=== PATIENT | female | born 1965 | race Caucasian/White ===

== ENCOUNTER 2020-01-25 13:15 | Emergency (ER) | payer BC, OTHER ==
[2020-01-25 13:40] VITALS: BP 162/85
--- NOTE | 2020-01-25 13:59 | UC ---
Upper Extremity HPI - HPI Summary HPI Summary: left arm pain x 1 month pain is dull , 8 out 10 , nothing makes it worse, better with constant movement no known injury , pain starts for the neck down to the hands + numbness of the arm and hand c/o pain in left side of neck , with neck stiffness - History of Current Complaint Chief Complaint: UCUpperExtremity Stated Complaint: LT ARM COMPLAINT Time Seen by Provider: 01/25/20 13:46 Hx Obtained From: Patient Hx Last Menstrual Period: implant Onset/Duration: Gradual Onset, Lasting Weeks - 4, Still Present Severity Initially: Moderate Severity Currently: Moderate Pain Intensity: 8 Location Of Pain: Is Discrete @ - left arm Character: Dull, Aching Aggravating Factor(s): Movement, Lifting, Flexion, Extension, Internal/External Rotation, Abduction, Adduction Alleviating Factor(s): Nothing Associated Signs And Symptoms: Positive: Weakness, Numbness/Tingling. Negative : Swelling, Redness, Bruising, Fever - Allergies/Home Medications Allergies/Adverse Reactions: Allergies Allergy/AdvReac Type Severity Reaction Status Date / Time No Known Allergies Allergy Verified 01/25/20 13:40 Home Medications: Home Medications Cyclobenzaprine TAB* [Flexeril 10 MG TAB*] 10 mg PO BID #20 tab 01/25/20 [Rx] Naproxen [Naproxen 500 mg tab] 500 mg PO BID #20 tablet 01/25/20 [Rx] PMH/Surg Hx/FS Hx/Imm Hx Previously Healthy: Yes - Surgical History Surgical History: Yes Surgery Procedure, Year, and Place: [facility] PROCEDURE - Family History Known Family History: Negative: Cardiac Disease, Hypertension, Diabetes - Social History Alcohol Use: Occasionally Substance Use Type: None Smoking Status (MU): Never Smoked Tobacco Review of Systems All Other Systems Reviewed And Are Negative: Yes Constitutional: Positive: Negative Skin: Positive: Negative Eyes: Positive: Negative Is Patient Immunocompromised?: No Physical Exam Triage Information Reviewed: Yes Appearance: Well-Nourished, Pain Distress Vital Signs: Initial Vital Signs Temp 99.9 F 01/25/20 13:33 Pulse 71 01/25/20 13:33 Resp 18 01/25/20 13:33 BP 162/85 01/25/20 13:33 Pulse Ox 100 01/25/20 13:33 Vital Signs Reviewed: Yes Eye Exam: Normal Eyes: Positive: Conjunctiva Clear ENT: Positive: Normal ENT inspection, Hearing grossly normal, Pharynx normal Neck: Positive: Supple, Nontender, Other: - decrease ROM on rotation to left. Negative: Tenderness @ Respiratory Exam: Normal Respiratory: Positive: Chest non-tender, Lungs clear, Normal breath sounds Cardiovascular: Positive: RRR, No Murmur, Pulses Normal Musculoskeletal: Positive: Other: - left arm : no swelling, no tenderness, good ROM , normal strenth, normal sensation Upper Extremity Course/Dx - Differential Dx/Diagnosis Provider Diagnosis: Thoracic outlet syndrome Discharge ED - Sign-Out/Discharge Documenting (check all that apply): Patient Departure All imaging exams completed and their final reports reviewed: No Studies - Discharge Plan Condition: Stable Disposition: HOME Prescriptions: Cyclobenzaprine TAB* [Flexeril 10 MG TAB*] 10 mg PO BID #20 tab Naproxen [Naproxen 500 mg tab] 500 mg PO BID #20 tablet Patient Education Materials: Thoracic Outlet Syndrome (ED) Referrals: No Primary Care Phys,NOPCP [Primary Care Provider] - 2 Weeks - Billing Disposition and Condition Condition: STABLE Disposition: Home
== END 2020-01-25 13:58 | disposition home or self-care (01) ==
LOC: UCCORT 13:15
DX: G54.0 Brachial plexus disorders (principal)
CPT/HCPCS: 99212; G0463